=== PATIENT | female | born 2005 | race Two or more races ===

== ENCOUNTER 2025-04-22 16:34 | Emergency (ER) | payer SELFPAY ==
[2025-04-22 16:53] VITALS: BP 122/77; PULSE 104; RESP 16; TEMP 36.4; O2SAT 99; BMI 36.9
--- NOTE | 2025-04-22 16:53 | ED_ITS ---
HPI - General Adult General Chief complaint: Skin/Abscess/Foreign Body Stated complaint: Inbedded belly piercing Time Seen by Provider: 04/22/25 19:46 Source: patient Mode of arrival: ambulatory Limitations: no limitations History of Present Illness ED Provider: HPI narrative: Patient with piercing in the belly button area woke up in the morning noticed that it is embedded under the skin Related Data Previous Rx's ?Medication ?Instructions ?Recorded amoxicillin 875 mg-potassium 1 tab PO BID #20 tabs 11/16 clavulanate 125 mg tablet Allergies Allergy/AdvReac Type Severity Reaction Status Date / Time No Known Allergies Allergy Verified 04/22/25 16:56 Review of Systems Review of Systems: Yes all other systems are reviewed and are negative PMFSH Social History Social History Smoked in Last 30 Days: No Use of substances other than those prescribed or required for medical reasons: No Advance Directives: No Advance Directives Information Provided: No Do you have a plan to hurt others: No Plan Physical Exam ED Vital Signs: Vital Signs - 24 hr 04/22/25 16:53 04/22/25 19:19 04/22/25 20:14 Temperature 97.6 F 98.1 F 98.1 F Pulse Rate 104 H 102 H 102 H Respiratory Rate 16 14 14 Blood Pressure 122/77 141/62 H 141/62 H Pulse Oximetry 99 99 99 Oxygen Delivery Method Room Air Room Air Room Air BMI result Body Mass Index 36.9 Appearance: Alert. Oriented X3. No acute distress. ENT: Pharynx normal Oral Mucosa moist tympanic membrane intact no erythema, Neck: Normal inspection. Neck supple. CVS: Normal heart rate and rhythm. Pulses normal. Respiratory: No respiratory distress. Equal air entry bilateral, no wheezing/rales/rhonchi Abd: soft, not tender piercing imbedded in the umbilical area with slight tenderness and redness Skin: Skin warm and dry. Normal skin color. Normal skin turgor. Extremities: No lower extremity edema, no calf tenderness Neuro: Oriented X 3. Course Course Course Narrative: This is an RME performed by Kristie Goel [employer] EXPORT CLERK: Additional HPI, ROS, PE not included below will be deferred to primary provider. patient is a 20-year-old female who presents emergency department for evaluation. she reports that yesterday she noticed that her navel piercing is imbedded, she has had this for 3 years. No active drainage. She presented to urgent care prior to arrival but they were unable to remove it. went to a piercing shop and they attempted to pull it down through the bottom but were unsuccessful. painful now after previous attempts of removal. There is surrounding erythema tenderness upon palpation, the top ball to the barbell is stuck withing the piercing tract. Medications Administered Discontinued Medications Generic Name Dose Route Start Last Admin Trade Name Nicolle PRN Reason Stop Dose Admin Amoxicillin/Clavulanate Potassium 875 mg 04/22/25 20:08 04/22/25 20:12 Amoxicillin/Potassium Clav 875 Mg Tablet PO 04/22/25 20:09 875 mg ONCE ONE Administration Bacitracin 1 appl 04/22/25 20:01 04/22/25 20:03 Bacitracin Oint 0.9 Gm Packet TOPICAL 04/22/25 20:02 1 appl ONCE ONE Administration Protocol Lidocaine HCl 5 ml 04/22/25 20:01 04/22/25 20:03 Lidocaine Hcl 1 % Mpf 5 Ml Vial INFILTRATI 04/22/25 20:02 5 ml ONCE ONE Administration Procedures Foreign Body Removal Site: other (Umbilical area) Description of foreign body: bead Sedation/Analgesia: none Technique: incision made to facilitate removal Confirmed by:: direct visualization Complications: none Post-procedure exam: awake, alert Medical Decision Making Medical Decision Making MDM Narrative: Piercing was removed to making a small incision on Skin bacitracin ointment applied Discharge Plan Discharge Clinical Impression: Foreign body (FB) in soft tissue Patient Disposition: Home, Self-Care Instructions: Soft Tissue Foreign Body (ED) Additional Instructions: Local care as advised Take antibiotics as prescribed for local infection Prescriptions: New amoxicillin-pot clavulanate 875-125 mg tablet 1 tab PO BID Qty: 20 0RF Interventions: ED Discharge Assessment Last Done: 04/22/25 20:14 Discharge Date/Time: 04/22/25 20:16 Print Language: [place]
[2025-04-22 19:19] VITALS: BP 141/62; PULSE 102; RESP 14; TEMP 36.7; O2SAT 99
[2025-04-22] MEDS: Lidocaine HCl 1 % MPF 5 ML VIAL INFILTRATI (20:03)
[2025-04-22 20:14] VITALS: BP 141/62; PULSE 102; RESP 14; TEMP 36.7; O2SAT 99
== END 2025-04-22 20:16 | disposition home or self-care (01) ==
PROVIDERS: Emergency Provider Internal Medicine
DX: M79.5 Residual foreign body in soft tissue (principal)
CPT/HCPCS: 10120; 99284; J2003